=== PATIENT | male | born 1955 | race Caucasian/White ===

== ENCOUNTER 2020-02-20 04:18 | Emergency (ER) | payer OTHER ==
[2020-02-20] MEDS ORDERED: Morphine 4 MG/ML Syringe IVPUSH PRN (05:02)
[2020-02-20] MEDS ORDERED: Aspirin 81 MG Tab.Chew PO ONE (05:02)
[2020-02-20] MEDS ORDERED: Sodium Chloride 0.9% 10 ML Syringe FLUSH PRN ×2 (05:02→07:07)
[2020-02-20] MEDS ORDERED: Alum Hydrox/Mag Hydrox/Simeth 15 ML, Lidocaine 2% 15 ML PO ONE ×2 (05:02)
--- NOTE | 2020-02-20 05:06 | EDM.PDOC ---
<OfficerMyles - Last Filed: 02/20/20 05:04> ED HPI GENERAL MEDICAL PROBLEM - General Chief Complaint: Gastrointestinal Problem Stated Complaint: CHEST/ABD PAIN Time Seen by Provider: 02/20/20 04:57 Source of Information: Reports: Patient, Family, RN Notes Reviewed History Limitations: Reports: No Limitations - History of Present Illness INITIAL COMMENTS - FREE TEXT/NARRATIVE: 64-year-old gentleman presents emergency department a complaint of epigastric pain, he states it started at 1230 this evening about 4 and half hours prior mainly epigastric region radiating across the stomach into the back no shortness of breath he was diaphoretic does not describe any chest pain no nausea or vomiting. He has no history of coronary artery disease no family history however he is diabetic with hypertension and dyslipidemia Upper Abdomen Pain Score (Numeric/FACES): 5 - Related Data Allergies Allergy/AdvReac Type Severity Reaction Status Date / Time No Known Allergies Allergy Verified 02/20/20 04:34 Home Meds: Home Meds Aspirin [Adult Low Dose Aspirin EC] 81 mg PO DAILY 02/20/20 [History] Cholecalciferol (Vitamin D3) [Vitamin D3] 50 mcg PO DAILY 02/20/20 [History] Cyanocobalamin (Vitamin B-12) [Vitamin B-12] 1,000 mcg PO DAILY 02/20/20 [Hist ory] Finasteride 5 mg PO DAILY 02/20/20 [History] Losartan Potassium 50 mg PO DAILY 02/20/20 [History] Multivitamin [Multi-Vitamin Daily] 1 tab PO DAILY 02/20/20 [History] Sildenafil [Viagra] 50 mg PO BEDTIME PRN 02/20/20 [History] Tamsulosin HCl [Flomax] 0.4 mg PO DAILY 02/20/20 [History] atorvaSTATin Calcium [Atorvastatin Calcium] 80 mg PO DAILY 02/20/20 [History] metFORMIN [Glucophage] 1,000 mg PO DAILY 02/20/20 [History] Past Medical History HEENT History: Reports: Impaired Vision Cardiovascular History: Reports: High Cholesterol, Hypertension Genitourinary History: Reports: Other (See Below) Other Genitourinary History: enlarged prostate Endocrine/Metabolic History: Reports: Diabetes, Type II - Infectious Disease History Infectious Disease History: Reports: Chicken Pox, Mumps Social & Family History - Tobacco Use Tobacco Use Status *Q: Never Tobacco User Second Hand Smoke Exposure: No - Caffeine Use Caffeine Use: Reports: Coffee, Soda - Alcohol Use Days Per Week of Alcohol Use: 3 Number of Drinks Per Day: 4 Total Drinks Per Week: 12 Date of Last Drink: 02/19/20 Time of Last Drink: 20:00 - Recreational Drug Use Recreational Drug Use: No ED ROS GENERAL - Review of Systems Review Of Systems: See Below Constitutional: Reports: Diaphoresis HEENT: Reports: No Symptoms Respiratory: Reports: No Symptoms Cardiovascular: Reports: No Symptoms GI/Abdominal: Reports: Abdominal Pain (Epigastric). Denies: Nausea, Vomiting : Reports: No Symptoms ED EXAM, GENERAL - Physical Exam Exam: See Below Exam Limited By: No Limitations General Appearance: Alert, WD/WN, No Apparent Distress Respiratory/Chest: No Respiratory Distress, Lungs Clear, Normal Breath Sounds, No Accessory Muscle Use, Chest Non-Tender Cardiovascular: Regular Rate, Rhythm, No Murmur GI/Abdominal: Normal Bowel Sounds, Soft, Tender (Epigastric region) Extremities: No Pedal Edema Departure - Departure Disposition: Home, Self-Care 01 Clinical Impression: Epigastric pain Instructions: Abdominal Pain, Adult, [id number] Referrals: PCP,None [Primary Care Provider] - Forms: ED Department Discharge Additional Instructions: Take famotidine 40 mg every evening. Avoid fatty meals. Recheck with your provider if symptoms persist to discuss getting a HIDA scan test on your gallbladder. Return as needed. Acetaminophen or [place] for pain relief. Sepsis Event Note (ED) - Evaluation Sepsis Screening Result: No Definite Risk <Juan C Thompson - Last Filed: 02/20/20 09:01> Course - Vital Signs Last Recorded V/S: Last Vital Signs Temp 35.6 C L 02/20/20 06:15 Pulse 50 L 02/20/20 06:15 Resp 18 02/20/20 06:15 BP 183/81 H 02/20/20 06:15 Pulse Ox 98 02/20/20 06:15 - Orders/Labs/Meds Orders: Active Orders 24 hr Category Date Time Status Cardiac Monitoring [RC] .As Directed Care 02/20/20 05:02 Active EKG Documentation Completion [RC] ASDIRECTED Care 02/20/20 05:03 Active Peripheral IV Care [RC] . DIRECTED Care 02/20/20 05:03 Active Abdomen Ltd [US] Stat Exams 02/20/20 07:57 Ordered Chest 1V Frontal [CR] Stat Exams 02/20/20 05:03 Taken Iopamidol [Isovue-300 (61%)] Med 02/20/20 07:15 Active 150 ml IV . DIRECTED Sodium Chloride 0.9% [Normal Saline] 1,000 ml Med 02/20/20 06:45 Active IV ASDIRECTED Sodium Chloride 0.9% [Saline Flush] Med 02/20/20 05:02 Active 10 ml FLUSH ASDIRECTED PRN Sodium Chloride 0.9% [Saline Flush] Med 02/20/20 07:07 Active 10 ml FLUSH ONETIME PRN Peripheral IV Insertion Adult [OM.PC] Stat Oth 02/20/20 05:02 Ordered Saline Lock Insert [OM.PC] Stat Oth 02/20/20 05:02 Ordered EKG 12 Lead [EK] Stat Ther 02/20/20 05:03 Ordered Medication Orders Sodium Chloride (Normal Saline) 1,000 mls @ 500 mls/hr IV ASDIRECTED KEVIN Last Admin: 02/20/20 06:52 Dose: 500 mls/hr Documented by: KEV Iopamidol (Isovue-300 (61%)) 150 ml IV . DIRECTED KEVIN Last Admin: 02/20/20 07:17 Dose: 150 ml Documented by: CATHY Morphine Sulfate (Morphine) 4 mg IVPUSH Q10M PRN PRN Reason: Chest Pain Stop: 02/21/20 05:02 Last Admin: 02/20/20 08:27 Dose: 4 mg Documented by: RUBIA Sodium Chloride (Saline Flush) 10 ml FLUSH ASDIRECTED PRN PRN Reason: Keep Vein Open Sodium Chloride (Saline Flush) 10 ml FLUSH ONETIME PRN PRN Reason: PER RADIOLOGY PROTOCOL Last Admin: 02/20/20 07:18 Dose: 10 ml Documented by: CATHY Labs: Laboratory Tests 02/20/20 02/20/20 02/20/20 Range/Units 05:37 05:37 05:37 WBC 11.4 H (4.5-11.0) K/uL RBC 4.81 (4.30-5.90) M/uL Hgb 14.4 (12.0-15.0) g/dL Hct 42.5 (40.0-54.0) % MCV 88 (80-98) fL MCH 30 (27-31) pg MCHC 34 (32-36) % Plt Count 208 (150-400) K/uL Neut % (Auto) 88 H (36-66) % Lymph % (Auto) 9 L (24-44) % [place] % (Auto) 3 (2-6) % Eos % (Auto) 0 L (2-4) % Baso % (Auto) 0 (0-1) % PT 10.3 (9.5-12.0) sec INR 0.94 (0.80-1.20) APTT 22.7 L (27.0-36.0) sec Sodium 137 L (140-148) mmol/L Potassium 3.9 (3.6-5.2) mmol/L Chloride 100 (100-108) mmol/L Carbon Dioxide 26 (21-32) mmol/L Anion Gap 14.9 H (5.0-14.0) mmol/L BUN 19 H (7-18) mg/dL Creatinine 0.9 (0.8-1.3) mg/dL Est Cr Clr Drug Dosing 94.94 mL/min Estimated GFR (MDRD) > 60 (>60) Glucose 231 H (74-106) mg/dL Lactic Acid (0.4-2.0) mmol/L Calcium 9.3 (8.5-10.1) mg/dL Total Bilirubin 2.1 H (0.2-1.0) mg/dL AST 15 (15-37) U/L ALT 32 (12-78) U/L Alkaline Phosphatase 79 (46-116) U/L Troponin I < 0.017 (0.000-0.056) ng/mL Total Protein 7.1 (6.4-8.2) g/dL Albumin 4.0 (3.4-5.0) g/dL Globulin 3.1 (2.3-3.5) g/dL Albumin/Globulin Ratio 1.3 (1.2-2.2) Lipase (73-393) U/L 02/20/20 02/20/20 Range/Units 05:37 06:43 WBC (4.5-11.0) K/uL RBC (4.30-5.90) M/uL Hgb (12.0-15.0) g/dL Hct (40.0-54.0) % MCV (80-98) fL MCH (27-31) pg MCHC (32-36) % Plt Count (150-400) K/uL Neut % (Auto) (36-66) % Lymph % (Auto) (24-44) % [place] % (Auto) (2-6) % Eos % (Auto) (2-4) % Baso % (Auto) (0-1) % PT (9.5-12.0) sec INR (0.80-1.20) APTT (27.0-36.0) sec Sodium (140-148) mmol/L Potassium (3.6-5.2) mmol/L Chloride (100-108) mmol/L Carbon Dioxide (21-32) mmol/L Anion Gap (5.0-14.0) mmol/L BUN (7-18) mg/dL Creatinine (0.8-1.3) mg/dL Est Cr Clr Drug Dosing mL/min Estimated GFR (MDRD) (>60) Glucose (74-106) mg/dL Lactic Acid 1.2 (0.4-2.0) mmol/L Calcium (8.5-10.1) mg/dL Total Bilirubin (0.2-1.0) mg/dL AST (15-37) U/L ALT (12-78) U/L Alkaline Phosphatase (46-116) U/L Troponin I (0.000-0.056) ng/mL Total Protein (6.4-8.2) g/dL Albumin (3.4-5.0) g/dL Globulin (2.3-3.5) g/dL Albumin/Globulin Ratio (1.2-2.2) Lipase 93 (73-393) U/L Meds: Medications Generic Name Dose Route Start Last Admin Trade Name Freq PRN Reason Stop Dose Admin Sodium Chloride 1,000 mls @ 500 mls/hr 02/20/20 06:45 02/20/20 06:52 Normal Saline IV 500 mls/hr ASDIRECTED KEVIN Administration Iopamidol 150 ml 02/20/20 07:15 02/20/20 07:17 Isovue-300 (61%) IV 150 ml . DIRECTED KEVIN Administration Morphine Sulfate 4 mg 12/05/20 05:02 02/20/20 08:27 Morphine IVPUSH 02/21/20 05:02 4 mg Q10M PRN Administration Chest Pain Sodium Chloride 10 ml 02/20/20 05:02 Saline Flush FLUSH ASDIRECTED PRN Keep Vein Open Sodium Chloride 10 ml 02/20/20 07:07 02/20/20 07:18 Saline Flush FLUSH 10 ml ONETIME PRN Administration PER RADIOLOGY PROTOCOL Discontinued Medications Generic Name Dose Route Start Last Admin Trade Name Freq PRN Reason Stop Dose Admin Aspirin 324 mg 02/20/20 05:02 02/20/20 05:10 Aspirin PO 02/20/20 05:03 324 mg ONETIME ONE Administration Al Hydroxide/Mg Hydroxide 15 0 ml 02/20/20 05:02 02/20/20 05:10 ml/ Lidocaine HCl 15 ml PO 02/20/20 05:03 30 ml ONETIME ONE Administration Hydromorphone HCl 0.5 mg 02/20/20 08:15 02/20/20 08:31 Dilaudid IVPUSH 02/20/20 08:16 Not Given ONETIME ONE Sodium Chloride 85 mls @ 3 mls/sec 02/20/20 07:07 02/20/20 07:18 Normal Saline IV 02/20/20 07:08 3 mls/sec ONETIME ONE Administration Pantoprazole Sodium 40 mg 02/20/20 06:30 02/20/20 06:38 Protonix PO 02/20/20 06:31 40 mg ONETIME ONE Administration - Radiology Interpretation Free Text/Narrative:: CT abd/pelvis- Impression : No specific abnormality to explain epigastric pain. There is a small umbilical hernia containing a segment of small bowel without evidence for obstruction. Please note that all CT scans at this facility use dose modulation, iterative reconstruction, and/or weight-based dosing when appropriate to reduce radiation dose to as low as reasonably achievable. Dictated by Krystal Manzanares MD @ Feb 20 2020 7:48AM GB ultrasound-negative CT Results Date: 02/20/20 CT Results Time: 07:53 - Re-Assessments/Exams Free Text/Narrative Re-Assessment/Exam: 02/20/20 07:58 Still having a modest amt of epigastric pain, lives in [facility], has a cabin locally. Departure - Departure Time of Disposition: 09:05 Condition: Fair Sepsis Event Note (ED) - Focused Exam Vital Signs: Vital Signs Temp Pulse Resp BP Pulse Ox 02/20/20 06:15 35.6 C L 50 L 18 183/81 H 98 02/20/20 05:05 35.5 C L 57 L 18 184/80 H 97 02/20/20 04:48 35.5 C L 56 L 18 186/81 H 97 - My Orders Last 24 Hours: My Active Orders 02/20/20 07:07 Sodium Chloride 0.9% [Saline Flush] 10 ml FLUSH ONETIME PRN 02/20/20 07:15 Iopamidol [Isovue-300 (61%)] 150 ml IV . DIRECTED 02/20/20 07:57 Abdomen Ltd [US] Stat - Assessment/Plan Last 24 Hours: My Active Orders 02/20/20 07:07 Sodium Chloride 0.9% [Saline Flush] 10 ml FLUSH ONETIME PRN 02/20/20 07:15 Iopamidol [Isovue-300 (61%)] 150 ml IV . DIRECTED 02/20/20 07:57 Abdomen Ltd [US] Stat
[2020-02-20] MEDS ORDERED: Pantoprazole 40 MG Tab.CR PO ONE (06:30)
[2020-02-20] MEDS ORDERED: Sodium Chloride 0.9% 1,000 ML IV SCH (06:45)
[2020-02-20] MEDS ORDERED: Iopamidol 612 MG/ML 150 ML Bottle IV SCH (07:15)
--- NOTE | 2020-02-20 07:49 | CRLCT ---
HISTORY: Epigastric pain. COMPARISON: None. TECHNIQUE: Axial images were obtained through the abdomen and pelvis following 150 cc of Isovue venous contrast. FINDINGS: The lung bases are clear. The liver, spleen, pancreas, gallbladder, adrenal glands and kidneys are within normal. The bowel is normal in caliber. There is a small ventral umbilical hernia with a loop of small bowel slightly protruding in this region. No evidence for bowel obstruction. The appendix is normal. Colonic diverticular. No evidence for acute diverticulitis. No lymphadenopathy or ascites. Mild prostatic enlargement likely BPH. Mixed lytic and sclerotic appearance of the L3-4 vertebral bodies are likely related to degenerative change. Impression : No specific abnormality to explain epigastric pain. There is a small umbilical hernia containing a segment of small bowel without evidence for obstruction. Please note that all CT scans at this facility use dose modulation, iterative reconstruction, and/or weight-based dosing when appropriate to reduce radiation dose to as low as reasonably achievable. Dictated by Krystal Manzanares MD @ Feb 20 2020 7:48AM Signed by Dr. Krystal Manzanares @ Feb 20 2020 7:48AM
[2020-02-20] MEDS ORDERED: HYDROmorphone 0.5 MG/0.5 ML Syringe IVPUSH ONE (08:15)
--- NOTE | 2020-02-20 09:43 | CRLUS ---
HISTORY: Epigastric pain. COMPARISON: CT 02/20/2020. FINDINGS: Limited views of the liver are unremarkable. No gallstones or gallbladder wall thickening. No evidence for biliary dilation. The common duct is measured at 5 mm. Sonographic Epperson`s sign negative. Due to obscuring bowel gas the pancreas is not well seen. The right kidney measures 10.9 x 4.9 x 5.8 cm. IMPRESSION: No acute abnormality. Dictated by Krystal Manzanares MD @ Feb 20 2020 9:41AM Signed by Dr. Krystal Manzanares @ Feb 20 2020 9:41AM
--- NOTE | 2020-02-22 09:22 | CR ---
CHEST: Portable 02/20/2020 at 5:32 AM CLINICAL HISTORY:Chest pain COMPARISON:None FINDINGS: There is mild cardiomegaly. Pulmonary vascularity is normal. There is mild increase in the left lung markings. Some of this may be chronic. No infiltrate or effusion is seen. Impression: Mild Cardiomegaly Mild prominent left lung markings is nonspecific.
== END 2020-02-20 09:20 | disposition home or self-care (01) ==
LOC: JP.ED 04:18
DX: R10.13 Epigastric pain (principal); E78.00 Pure hypercholesterolemia, unspecified; I10 Essential (primary) hypertension; E11.9 Type 2 diabetes mellitus without complications; N40.0 Benign prostatic hyperplasia without lower urinary tract symptoms; Z79.84 Long term (current) use of oral hypoglycemic drugs; Z79.899 Other long term (current) drug therapy; Z79.82 Long term (current) use of aspirin
CPT/HCPCS: 36415; 71045; 71045-26; 74177; 76705; 80053; 83605; 83690; 84484; 85025; 85610; 85730; 93005; 96374; 99284-25; A9270-GY; J2270; J7030; Q9967